=== PATIENT | female | born 1945 | race Caucasian/White ===

== ENCOUNTER 2017-07-23 08:58 | Day surgery (SDC) | payer OTHER, BC ==
[~2017-07-23] VITALS: Ht 162.6 cm; Wt 53.5 kg
[~2017-07-23 08:58] MED LIST: ALLEGRA60 MG PO; CALTRATE PLUS1 EACH PO; CO Q-10200 MG PO; LIPITOR10 MG PO; LISINOPRIL40 MG PO; MULTIVITAMIN1 EAC2 PO; OMEGA 3 500 SO1 EACH PO; PREMPRO 0.31 TABLET PO; PROBIOTIC1 EAC3 PO; RANITIDINE HCL300 M1 PO; ULTRAM50 MG PO; VALACYCLOVIR500 MG PO
[2017-07-23 09:27] VITALS: BP 184/82
[2017-07-23 11:45] VITALS: BP 181/75
[2017-07-23 12:49] VITALS: BP 147/67
== END 2017-07-23 13:11 | disposition home or self-care (01) ==
LOC: SDC 08:58
DX: H35.342 Macular cyst, hole, or pseudohole, left eye (principal); I10 Essential (primary) hypertension; E03.9 Hypothyroidism, unspecified; E78.2 Mixed hyperlipidemia; K21.9 Gastro-esophageal reflux disease without esophagitis; J30.9 Allergic rhinitis, unspecified; Z88.8 Allergy status to other drugs, medicaments and biological substances; Z82.49 Family history of ischemic heart disease and other diseases of the circulatory system; Z84.1 Family history of disorders of kidney and ureter; Z82.5 Family history of asthma and other chronic lower respiratory diseases; Z80.6 Family history of leukemia; Z83.49 Family history of other endocrine, nutritional and metabolic diseases
CPT/HCPCS: J0690; J1100; J1170; J3300